=== PATIENT | female | born 1955 | race African-American/Black ===

== ENCOUNTER → 2017-04-22 | Outpatient (CLI) | payer MEDICARE, MEDICAID ==
[~2017-04-22] MED LIST: ALEN10TA3 PO; ALPR0.5T PO; ASPI-1160 PO; BUSP10TA3 PO; CALC-1232 PO; DEXA1TAB PO; DOCU-100 PO; HYDR-519 PO; MSCON15 PO; ONDA8TAB6 PO; OXYC20TA21 PO; PROC10TA PO
[2017-04-22 13:57] LABS: BASOPHILS % 0.7 % (0.0-2.0); EOSINOPHILS % 2.2 % (0.0-5.0); HEMATOCRIT. 39.7 % (36.0-48.0); HEMOGLOBIN. 13.2 g/dL (12.0-16.0); LYMPHOCYTES % 33.6 % (20.0-50.0); MEAN CORPUSCULAR HEMOGLOBIN 30.2 pg (28.0-32.0); MEAN CORPUSCULAR VOLUME 91.1 fL (81.0-99.0); MONOCYTES % 9.3 % (2.0-8.0); NEUTROPHILS % 54.2 % (40.0-76.0); RED BLOOD CELL COUNT 4.36 mill/uL (4.2-5.4); RED CELL DISTRIBUTION WIDTH 13.8 % (11.6-14.6)
[2017-04-22 13:58] LABS: CLARITY URINE CLEAR (CLEAR); COLOR URINE YELLOW (YELLOW); KETONES URINE TRACE (NEGATIVE); LEUKOCYTE ESTERASE URINE 1+ (NEGATIVE); NITRITE URINE NEGATIVE (NEGATIVE); OCCULT BLOOD URINE NEGATIVE (NEGATIVE); PROTEIN URINE NEGATIVE (NEGATIVE); SPECIFIC GRAVITY URINE 1.028 (1.005-1.030); UROBILINOGEN URINE 0.2 E.U./dL (0.2-1.0)
[2017-04-22 14:07] LABS: CARBON DIOXIDE 23 mEq/L (21-32); CHLORIDE 106 mEq/L (98-107)
== END | disposition home or self-care (01) ==
LOC: RAD 13:13
PROVIDERS: ATTEND Internal Medicine Pulmonary Disease
DX: I10 Essential (primary) hypertension (principal); N39.0 Urinary tract infection, site not specified; K58.1 Irritable bowel syndrome with constipation; R56.9 Unspecified convulsions
CPT/HCPCS: 36415; 80053; 81001; 85025; 87086

== ENCOUNTER 2018-06-05 11:54 | Emergency (ER) | payer MEDICARE, MEDICAID ==
[~2018-06-05] VITALS: Ht 160 cm; Wt 48.0 kg
[2018-06-05 11:57] VITALS: BP 154/92
== END 2018-06-05 18:06 | disposition home or self-care (01) ==
LOC: ER 11:54
DX: S52.591A Other fractures of lower end of right radius, initial encounter for closed fracture (principal); W01.0XXA Fall on same level from slipping, tripping and stumbling without subsequent striking against object, initial encounter; Y93.89 Activity, other specified; Y92.89 Other specified places as the place of occurrence of the external cause; Z88.6 Allergy status to analgesic agent; Z88.5 Allergy status to narcotic agent; Z88.0 Allergy status to penicillin; Z88.2 Allergy status to sulfonamides
CPT/HCPCS: 29125; 73080; 73110; 73130; 99284; A4565

== ENCOUNTER 2018-06-15 14:40 | Inpatient (IN) | payer MEDICARE, MEDICAID ==
[~2018-06-15] VITALS: Ht 165.1 cm; Wt 53.5 kg
[2018-06-15 15:00] VITALS: BP 99/66
[2018-06-15] MEDS ORDERED: CLONIDINE 0.1MG TABLET PO PRN (16:45)
[2018-06-15] MEDS ORDERED: POLYETHYLENE GLYCOL 3350 (17GM) 1 DOSE PACK PO PRN (16:45)
[2018-06-15] MEDS: DOCUSATE SODIUM 100MG CAPSULE PO SCH (17:00)
[2018-06-15] MEDS: HYDROMORPHONE HCL 4MG TABLET PO PRN ×2 (17:36→22:08)
[2018-06-15] MEDS ORDERED: LAMOTRIGINE 25MG TABLET PO SCH (18:00)
[2018-06-15] MEDS: CARISOPRODOL 350 MG TABLET PO PRN (18:52)
[2018-06-15 20:00] VITALS: BP 112/72
[2018-06-15] MEDS: AMLODIPINE 2.5MG TABLET PO SCH (21:00)
[2018-06-15] MEDS: LAMOTRIGINE 25MG TABLET PO SCH (21:27)
[2018-06-16] MEDS: HYDROMORPHONE HCL 4MG TABLET PO PRN ×4 (04:17→23:19)
[2018-06-16] MEDS: PANTOPRAZOLE 40MG DR TABLET PO SCH (06:38)
[2018-06-16 06:43] LABS: BASOPHILS % 0.8 % (0.0-2.0); EOSINOPHILS % 6.9 % (0.0-5.0); HEMATOCRIT. 34.3 % (36.0-48.0); HEMOGLOBIN. 11.6 g/dL (12.0-16.0); MEAN CORPUSCULAR HEMOGLOBIN 30.8 pg (28.0-32.0); MEAN CORPUSCULAR VOLUME 91.2 fL (81.0-99.0); MEAN PLATELET VOLUME 9.3 fl (7.4-10.4); MONOCYTES % 7.8 % (2.0-8.0); NEUTROPHILS % 60.5 % (40.0-76.0); PLATELET 214 x1000/uL (130-400); RED BLOOD CELL COUNT 3.76 mill/uL (4.2-5.4); RED CELL DISTRIBUTION WIDTH 15.5 % (11.6-14.6)
[2018-06-16 06:47] LABS: CHLORIDE 103 mEq/L (98-107)
[2018-06-16 08:00] VITALS: BP 109/70
[2018-06-16] MEDS: LAMOTRIGINE 25MG TABLET PO SCH ×2 (08:07→17:11)
[2018-06-16] MEDS: CARISOPRODOL 350 MG TABLET PO PRN ×2 (08:07→15:02)
[2018-06-16] MEDS: DOCUSATE SODIUM 100MG CAPSULE PO SCH ×2 (08:08→16:33)
[2018-06-16] MEDS: AMLODIPINE 2.5MG TABLET PO SCH ×2 (08:08→20:53)
[2018-06-16] MEDS: ENOXAPARIN 40MG/0.4ML SYR SUBCUT SCH (15:02)
[2018-06-16 20:00] VITALS: BP 99/56
[2018-06-17] VITALS: BP 118/68
[2018-06-17] MEDS: HYDROMORPHONE HCL 4MG TABLET PO PRN ×2 (05:17→13:41)
[2018-06-17] MEDS: PANTOPRAZOLE 40MG DR TABLET PO SCH (06:09)
[2018-06-17 08:00] VITALS: BP 114/61
[2018-06-17] MEDS: AMLODIPINE 2.5MG TABLET PO SCH ×2 (09:28→21:00)
[2018-06-17] MEDS: LAMOTRIGINE 25MG TABLET PO SCH ×2 (09:28→17:26)
[2018-06-17] MEDS: DOCUSATE SODIUM 100MG CAPSULE PO SCH ×2 (09:28→17:26)
[2018-06-17] MEDS: ENOXAPARIN 40MG/0.4ML SYR SUBCUT SCH (09:29)
[2018-06-17] MEDS: CARISOPRODOL 350 MG TABLET PO PRN ×2 (09:29→18:45)
[2018-06-17] MEDS: FAMOTIDINE 20MG TABLET PO SCH (17:26)
[2018-06-17 20:00] VITALS: BP 93/65
[2018-06-17 21:53] VITALS: BP 100/69
[2018-06-18] MEDS: HYDROMORPHONE HCL 4MG TABLET PO PRN ×2 (00:33→10:18)
[2018-06-18 01:18] LABS: CLARITY URINE CLEAR (CLEAR); COLOR URINE YELLOW (YELLOW); KETONES URINE NEGATIVE (NEGATIVE); LEUKOCYTE ESTERASE URINE NEGATIVE (NEGATIVE); NITRITE URINE NEGATIVE (NEGATIVE); OCCULT BLOOD URINE NEGATIVE (NEGATIVE); PH URINE 5.5 (4.5-8.0); PROTEIN URINE NEGATIVE (NEGATIVE); SPECIFIC GRAVITY URINE 1.029 (1.005-1.030)
[2018-06-18 08:00] VITALS: BP 114/67
[2018-06-18] MEDS: DOCUSATE SODIUM 100MG CAPSULE PO SCH ×2 (09:00→16:47)
[2018-06-18 09:37] LABS: BASOPHILS % 1.1 % (0.0-2.0); EOSINOPHILS % 5.1 % (0.0-5.0); HEMOGLOBIN. 12.5 g/dL (12.0-16.0); LYMPHOCYTES % 33.2 % (20.0-50.0); MEAN CORPUSCULAR HEMOGLOBIN 30.3 pg (28.0-32.0); MEAN CORPUSCULAR VOLUME 92.2 fL (81.0-99.0); MEAN PLATELET VOLUME 8.9 fl (7.4-10.4); MONOCYTES % 8.3 % (2.0-8.0); NEUTROPHILS % 52.3 % (40.0-76.0); PLATELET 237 x1000/uL (130-400); RED BLOOD CELL COUNT 4.12 mill/uL (4.2-5.4); RED CELL DISTRIBUTION WIDTH 15.2 % (11.6-14.6)
[2018-06-18] MEDS: ENOXAPARIN 40MG/0.4ML SYR SUBCUT SCH (10:14)
[2018-06-18] MEDS: LAMOTRIGINE 25MG TABLET PO SCH ×2 (10:18→16:46)
[2018-06-18] MEDS: FAMOTIDINE 20MG TABLET PO SCH ×2 (10:18→16:46)
[2018-06-18] MEDS: AMLODIPINE 2.5MG TABLET PO SCH ×2 (10:19→21:00)
[2018-06-18 10:25] LABS: CHLORIDE 104 mEq/L (98-107)
[2018-06-18 11:31] LABS: HDL CHOLESTEROL 55 mg/dL (40-59); LDL CHOLESTEROL 71 mg/dL (5-100); PHOSPHORUS 2.5 mg/dL (2.5-4.9); TOTAL IRON BINDING CAPACITY 352 ug/dL (250-450)
[2018-06-18] MEDS: HYDROCODONE/ACETAMINOPHEN 10/325MG TABLET PO PRN (13:15)
[2018-06-18] MEDS: PANTOPRAZOLE 40MG DR TABLET PO SCH (16:46)
[2018-06-18 22:00] VITALS: BP 103/62
[2018-06-19] VITALS: BP 100/64
[2018-06-19] MEDS: HYDROMORPHONE HCL 4MG TABLET PO PRN ×2 (01:29→20:18)
[2018-06-19] MEDS: PANTOPRAZOLE 40MG DR TABLET PO SCH (06:12)
[2018-06-19 07:45] LABS: BASOPHILS % 1.2 % (0.0-2.0); EOSINOPHILS % 4.2 % (0.0-5.0); HEMATOCRIT. 33.5 % (36.0-48.0); HEMOGLOBIN. 11.1 g/dL (12.0-16.0); LYMPHOCYTES % 32.3 % (20.0-50.0); MEAN CORPUSCULAR HEMOGLOBIN 30.4 pg (28.0-32.0); MEAN CORPUSCULAR VOLUME 91.7 fL (81.0-99.0); MEAN PLATELET VOLUME 9.3 fl (7.4-10.4); MONOCYTES % 8.8 % (2.0-8.0); NEUTROPHILS % 53.5 % (40.0-76.0); PLATELET 223 x1000/uL (130-400); RED BLOOD CELL COUNT 3.66 mill/uL (4.2-5.4)
[2018-06-19 07:48] LABS: PARTIAL THROMBOPLASTIN TIME 25.9 sec (23.4-31.0); PROTHROMBIN TIME 9.9 sec (9.1-11.1)
[2018-06-19 08:04] VITALS: BP 117/70
[2018-06-19 09:08] LABS: CHLORIDE 104 mEq/L (98-107)
[2018-06-19 09:13] LABS: AMYLASE 82 IU/L (25-115)
[2018-06-19] MEDS: LAMOTRIGINE 25MG TABLET PO SCH ×2 (09:30→17:00)
[2018-06-19] MEDS: AMLODIPINE 2.5MG TABLET PO SCH ×2 (09:30→20:16)
[2018-06-19] MEDS: DOCUSATE SODIUM 100MG CAPSULE PO SCH ×2 (09:30→17:00)
[2018-06-19] MEDS: FAMOTIDINE 20MG TABLET PO SCH (09:30)
[2018-06-19] MEDS: CYANOCOBALAMIN 1000MCG/ML VIAL IM SCH (09:39)
[2018-06-19] MEDS: HYDROCODONE/ACETAMINOPHEN 10/325MG TABLET PO PRN (09:40)
[2018-06-19] MEDS ORDERED: DEXT 5%/0.45% NACL 1000ML 1,000 ML IV SCH (10:30)
[2018-06-19] MEDS ORDERED: SIMETHICONE 40 MG/0.6 ML 30ML ONE ×3 (13:59→15:15)
[2018-06-19] MEDS ORDERED: MIDAZOLAM HCL 5 MG/5 ML VIAL ONE (13:59)
[2018-06-19] MEDS ORDERED: FENTANYL CITRATE/PF 50MCG/ML 2ML VIAL ONE (13:59)
[2018-06-19] MEDS ORDERED: MIDAZOLAM HCL 5 MG/5 ML VIAL IV PRN (14:11)
[2018-06-19] MEDS ORDERED: FENTANYL CITRATE/PF 50MCG/ML 2ML VIAL IV PRN (14:12)
[2018-06-19] MEDS ORDERED: BACTERIOSTATIC SODIUM CHLORIDE 0.9% 30ML VIAL IJ ONE ×2 (15:14→15:15)
[2018-06-19] MEDS: PANTOPRAZOLE SODIUM 40 MG/VIAL IV SCH (17:31)
[2018-06-19 20:00] VITALS: BP 95/68
[2018-06-20] MEDS: HYDROCODONE/ACETAMINOPHEN 10/325MG TABLET PO PRN (02:22)
[2018-06-20 08:19] VITALS: BP 114/62
[2018-06-20] MEDS: PANTOPRAZOLE SODIUM 40 MG/VIAL IV SCH ×2 (08:38→08:50)
[2018-06-20] MEDS: CYANOCOBALAMIN 1000MCG/ML VIAL IM SCH (08:39)
[2018-06-20] MEDS: AMLODIPINE 2.5MG TABLET PO SCH ×2 (08:39→21:00)
[2018-06-20] MEDS: DOCUSATE SODIUM 100MG CAPSULE PO SCH ×2 (08:39→16:13)
[2018-06-20] MEDS: LAMOTRIGINE 25MG TABLET PO SCH ×2 (08:40→16:13)
[2018-06-20] MEDS: CARISOPRODOL 350 MG TABLET PO PRN (08:44)
[2018-06-20] MEDS: HYDROMORPHONE HCL 4MG TABLET PO PRN ×2 (10:27→21:25)
[2018-06-20 12:09] LABS: AMYLASE 86 IU/L (25-115)
[2018-06-20] MEDS: PANTOPRAZOLE 40MG DR TABLET PO SCH (16:13)
[2018-06-20 20:00] VITALS: BP 99/63
[2018-06-21 08:00] VITALS: BP 113/70
[2018-06-21] MEDS: DOCUSATE SODIUM 100MG CAPSULE PO SCH ×2 (08:54→17:10)
[2018-06-21] MEDS: LAMOTRIGINE 25MG TABLET PO SCH ×2 (08:54→17:10)
[2018-06-21] MEDS: PANTOPRAZOLE 40MG DR TABLET PO SCH ×2 (08:55→17:10)
[2018-06-21] MEDS: AMLODIPINE 2.5MG TABLET PO SCH ×2 (08:57→21:00)
[2018-06-21] MEDS: ENOXAPARIN 40MG/0.4ML SYR SUBCUT SCH (08:57)
[2018-06-21] MEDS: HYDROMORPHONE HCL 4MG TABLET PO PRN ×2 (08:58→18:31)
[2018-06-21] MEDS: CYANOCOBALAMIN 1000MCG/ML VIAL IM SCH (08:58)
[2018-06-21 09:57] LABS: BASOPHILS % 1.2 % (0.0-2.0); EOSINOPHILS % 5.4 % (0.0-5.0); HEMATOCRIT. 34.5 % (36.0-48.0); HEMOGLOBIN. 11.9 g/dL (12.0-16.0); LYMPHOCYTES % 30.6 % (20.0-50.0); MEAN CORPUSCULAR HEMOGLOBIN 31.6 pg (28.0-32.0); MEAN CORPUSCULAR VOLUME 91.6 fL (81.0-99.0); MEAN PLATELET VOLUME 8.4 fl (7.4-10.4); MONOCYTES % 8.4 % (2.0-8.0); NEUTROPHILS % 54.4 % (40.0-76.0); PLATELET 281 x1000/uL (130-400); RED BLOOD CELL COUNT 3.76 mill/uL (4.2-5.4); RED CELL DISTRIBUTION WIDTH 15.3 % (11.6-14.6)
[2018-06-21 10:34] LABS: CHLORIDE 103 mEq/L (98-107)
[2018-06-21 20:00] VITALS: BP 94/60
[2018-06-21] MEDS: CARISOPRODOL 350 MG TABLET PO PRN (21:49)
[2018-06-22 08:00] VITALS: BP 119/79
[2018-06-22] MEDS: PANTOPRAZOLE 40MG DR TABLET PO SCH ×2 (08:10→17:00)
[2018-06-22] MEDS: ENOXAPARIN 40MG/0.4ML SYR SUBCUT SCH (08:10)
[2018-06-22] MEDS: AMLODIPINE 2.5MG TABLET PO SCH ×2 (08:10→21:00)
[2018-06-22] MEDS: CYANOCOBALAMIN 1000MCG/ML VIAL IM SCH (08:10)
[2018-06-22] MEDS: LAMOTRIGINE 25MG TABLET PO SCH ×2 (08:10→17:00)
[2018-06-22] MEDS: HYDROMORPHONE HCL 4MG TABLET PO PRN ×2 (08:35→17:07)
[2018-06-22] MEDS: DOCUSATE SODIUM 100MG CAPSULE PO SCH ×2 (08:36→17:00)
[2018-06-22] MEDS ORDERED: HYDROCODONE/ACETAMINOPHEN 5/325MG TABLET PO PRN (11:30)
[2018-06-22 20:00] VITALS: BP 128/77
[2018-06-23] MEDS: HYDROMORPHONE HCL 4MG TABLET PO PRN ×3 (01:15→22:23)
[2018-06-23 08:00] VITALS: BP 126/76
[2018-06-23] MEDS: CARISOPRODOL 350 MG TABLET PO PRN (08:50)
[2018-06-23] MEDS: LAMOTRIGINE 25MG TABLET PO SCH ×2 (08:50→17:32)
[2018-06-23] MEDS: DOCUSATE SODIUM 100MG CAPSULE PO SCH ×3 (08:50→17:00)
[2018-06-23] MEDS: PANTOPRAZOLE 40MG DR TABLET PO SCH ×2 (08:51→17:32)
[2018-06-23] MEDS: AMLODIPINE 2.5MG TABLET PO SCH ×2 (08:51→21:00)
[2018-06-23] MEDS: ENOXAPARIN 40MG/0.4ML SYR SUBCUT SCH (08:52)
[2018-06-23] MEDS: CYANOCOBALAMIN 1000MCG/ML VIAL IM SCH (08:52)
[2018-06-23 15:10] LABS: 25-HYDROXY VITAMIN D3 8.7 ng/mL (.)
[2018-06-23 20:00] VITALS: BP 116/69
[2018-06-24 08:00] VITALS: BP 108/66
[2018-06-24] MEDS: DOCUSATE SODIUM 100MG CAPSULE PO SCH ×2 (09:00→16:19)
[2018-06-24] MEDS: PANTOPRAZOLE 40MG DR TABLET PO SCH ×2 (10:11→16:44)
[2018-06-24] MEDS: AMLODIPINE 2.5MG TABLET PO SCH ×2 (10:11→21:00)
[2018-06-24] MEDS: LAMOTRIGINE 25MG TABLET PO SCH ×2 (10:11→16:44)
[2018-06-24] MEDS: ENOXAPARIN 40MG/0.4ML SYR SUBCUT SCH (10:12)
[2018-06-24] MEDS: HYDROMORPHONE HCL 4MG TABLET PO PRN ×2 (10:31→16:45)
[2018-06-24] MEDS: CYANOCOBALAMIN 1000MCG/ML VIAL IM SCH (10:33)
[2018-06-24] MEDS ORDERED: SIMETHICONE 80MG TABLET CHEW PO PRN (13:00)
[2018-06-24 20:00] VITALS: BP 112/68
[2018-06-25 08:22] VITALS: BP 117/62
[2018-06-25] MEDS: DOCUSATE SODIUM 100MG CAPSULE PO SCH ×2 (09:00→17:00)
[2018-06-25] MEDS: PANTOPRAZOLE 40MG DR TABLET PO SCH ×2 (10:16→17:27)
[2018-06-25] MEDS: LAMOTRIGINE 25MG TABLET PO SCH ×2 (10:16→17:27)
[2018-06-25] MEDS: AMLODIPINE 2.5MG TABLET PO SCH ×2 (10:19→21:00)
[2018-06-25] MEDS: HYDROMORPHONE HCL 4MG TABLET PO PRN ×2 (10:19→23:48)
[2018-06-25] MEDS: ENOXAPARIN 40MG/0.4ML SYR SUBCUT SCH (10:20)
[2018-06-25] MEDS: CYANOCOBALAMIN 1000MCG/ML VIAL IM SCH (11:13)
[2018-06-25] MEDS ORDERED: CYANOCOBALAMIN 1000MCG/ML VIAL IM NR (11:15)
[2018-06-25 20:00] VITALS: BP 102/61
[2018-06-26 08:12] VITALS: BP 105/64
[2018-06-26] MEDS: LAMOTRIGINE 25MG TABLET PO SCH ×2 (08:37→17:15)
[2018-06-26] MEDS: PANTOPRAZOLE 40MG DR TABLET PO SCH ×2 (08:37→17:15)
[2018-06-26] MEDS: DOCUSATE SODIUM 100MG CAPSULE PO SCH ×2 (08:37→17:15)
[2018-06-26] MEDS: ENOXAPARIN 40MG/0.4ML SYR SUBCUT SCH (08:37)
[2018-06-26] MEDS: AMLODIPINE 2.5MG TABLET PO SCH ×2 (09:00→21:00)
[2018-06-26] MEDS: HYDROMORPHONE HCL 4MG TABLET PO PRN ×2 (10:42→21:20)
[2018-06-26 20:00] VITALS: BP 103/63
[2018-06-27 08:00] VITALS: BP 93/69
[2018-06-27] MEDS: ENOXAPARIN 40MG/0.4ML SYR SUBCUT SCH (08:34)
[2018-06-27] MEDS: PANTOPRAZOLE 40MG DR TABLET PO SCH ×2 (08:34→16:33)
[2018-06-27] MEDS: AMLODIPINE 2.5MG TABLET PO SCH ×2 (08:34→21:00)
[2018-06-27] MEDS: LAMOTRIGINE 25MG TABLET PO SCH ×2 (08:34→16:33)
[2018-06-27] MEDS: DOCUSATE SODIUM 100MG CAPSULE PO SCH ×2 (08:35→16:42)
[2018-06-27] MEDS: HYDROMORPHONE HCL 4MG TABLET PO PRN (12:03)
[2018-06-27 20:00] VITALS: BP 92/63
[2018-06-28 08:00] VITALS: BP 109/69
[2018-06-28] MEDS: DOCUSATE SODIUM 100MG CAPSULE PO SCH (08:03)
[2018-06-28] MEDS: LAMOTRIGINE 25MG TABLET PO SCH (08:04)
[2018-06-28] MEDS: HYDROMORPHONE HCL 4MG TABLET PO PRN (08:05)
[2018-06-28] MEDS: PANTOPRAZOLE 40MG DR TABLET PO SCH (08:05)
[2018-06-28] MEDS: AMLODIPINE 2.5MG TABLET PO SCH (08:06)
[2018-06-28] MEDS: ENOXAPARIN 40MG/0.4ML SYR SUBCUT SCH (08:06)
[2018-06-28 08:12] VITALS: BP 109/69
[2018-06-28 11:16] VITALS: BP 109/69
[2018-07-02] MEDS ORDERED: CYANOCOBALAMIN 1000MCG/ML VIAL IM SCH (09:00)
== END 2018-06-28 16:00 | disposition home health service (06) | DRG 563 ==
PROVIDERS: ADMIT Physical Medicine & Rehabilitation Spinal Cord Injury Medicine; ATTEND Internal Medicine Pulmonary Disease
PROC: 0DJ08ZZ Inspection of Upper Intestinal Tract, Via Natural or Artificial Opening Endoscopic (ICD-10-PCS; principal; 2018-06-19 15:00)
DX: S52.501A Unspecified fracture of the lower end of right radius, initial encounter for closed fracture (principal); G81.14 Spastic hemiplegia affecting left nondominant side; F11.20 Opioid dependence, uncomplicated; K86.1 Other chronic pancreatitis; W01.0XXA Fall on same level from slipping, tripping and stumbling without subsequent striking against object, initial encounter; G40.909 Epilepsy, unspecified, not intractable, without status epilepticus; G93.89 Other specified disorders of brain; I10 Essential (primary) hypertension; H53.462 Homonymous bilateral field defects, left side; H54.7 Unspecified visual loss; J98.4 Other disorders of lung; M81.0 Age-related osteoporosis without current pathological fracture; Z96.651 Presence of right artificial knee joint; K80.70 Calculus of gallbladder and bile duct without cholecystitis without obstruction; R53.81 Other malaise; D64.9 Anemia, unspecified; K21.9 Gastro-esophageal reflux disease without esophagitis; G89.29 Other chronic pain; F32.9 Major depressive disorder, single episode, unspecified; K59.00 Constipation, unspecified; K76.89 Other specified diseases of liver; Z96.642 Presence of left artificial hip joint; F17.210 Nicotine dependence, cigarettes, uncomplicated; Y93.89 Activity, other specified; Y92.89 Other specified places as the place of occurrence of the external cause; Y99.8 Other external cause status; Z85.3 Personal history of malignant neoplasm of breast; Z88.0 Allergy status to penicillin; Z90.11 Acquired absence of right breast and nipple; Z82.49 Family history of ischemic heart disease and other diseases of the circulatory system; Z88.2 Allergy status to sulfonamides; Z88.6 Allergy status to analgesic agent; Z88.8 Allergy status to other drugs, medicaments and biological substances
CPT/HCPCS: 36415; 74176; 76700; 80048; 80053; 80061; 80076; 81003; 82150; 82270; 82306; 82607; 82728; 82746; 83036; 83540; 83550; 83690; 83735; 84100; 84134; 84443; 84630; 85025; 85610; 85730; 86677; 87086; 92523; 93970; 97110; 97112; 97116; 97162; 97167; 97530; 97535; A6261; C1893; C9113; G0515; J1650; J2250; J3010; J3420; J3490

== ENCOUNTER 2018-10-17 08:21 | Inpatient (IN) | payer MEDICARE, MEDICAID ==
[~2018-10-17] VITALS: Ht 165.1 cm; Wt 50.8 kg
[2018-10-17] MEDS ORDERED: SODIUM CHLORIDE 0.9% 1,000 ML IV ONE (08:36)
[2018-10-17] MEDS ORDERED: FENTANYL CITRATE/PF 50MCG/ML 2ML VIAL IV ONE ×2 (08:45→11:45)
[2018-10-17 11:40] LABS: *AMPHETAMINES SCREEN URINE NEGATIVE (NEGATIVE); *BARBITURATES SCREEN URINE NEGATIVE (NEGATIVE); *BENZODIAZEPINES SCREEN URINE NEGATIVE (NEGATIVE); *COCAINE SCREEN URINE NEGATIVE (NEGATIVE); METHADONE URINE SCREEN NEGATIVE (NEGATIVE); OPIATES URINE SCREEN PRESUMTIVE POSITIVE (NEGATIVE); PHENCYCLIDINE URINE SCREEN NEGATIVE (NEGATIVE)
[2018-10-17 11:41] LABS: CANNABINOID URINE SCREEN NEGATIVE (NEGATIVE)
[2018-10-17 12:00] VITALS: BP 165/90
[2018-10-17 12:17] LABS: HEMATOCRIT. 35.4 % (36.0-48.0); HEMOGLOBIN. 11.5 g/dL (12.0-16.0); MEAN CORPUSCULAR HEMOGLOBIN 26.7 pg (28.0-32.0); MEAN CORPUSCULAR VOLUME 82.2 fL (81.0-99.0); MEAN PLATELET VOLUME 8.8 fl (7.4-10.4); PLATELET 249 x1000/uL (130-400)
[2018-10-17 12:24] LABS: CHLORIDE 110 mEq/L (98-107)
[2018-10-17 12:27] LABS: INR 1.1; PARTIAL THROMBOPLASTIN TIME 30.3 sec (23.4-31.0); PROTHROMBIN TIME 11.4 sec (9.1-11.1)
[2018-10-17 12:28] LABS: ETHANOL BLOOD < 10 mg/dL
[2018-10-17] MEDS: HYDROMORPHONE HCL 2MG TABLET PO PRN ×2 (14:34→21:27)
[2018-10-17 15:25] LABS: PLATELET ESTIMATE NORMAL
[2018-10-17 16:00] VITALS: BP 173/93
[2018-10-17 16:25] VITALS: BP 165/90
[2018-10-17] MEDS ORDERED: HYDR4TAB4 MT (18:36)
[2018-10-17] MEDS ORDERED: ALPR1TAB2 MT (18:36)
[2018-10-17] MEDS ORDERED: ALEN70TA3 MT (18:36)
[2018-10-17] MEDS ORDERED: AMLO2.5T45 MT (18:36)
[2018-10-17] MEDS ORDERED: MY80 MT (18:36)
[2018-10-17] MEDS ORDERED: ASPI-1158 MT (18:36)
[2018-10-17] MEDS ORDERED: S350 MT (18:36)
[2018-10-17] MEDS ORDERED: DOCU-138 MT (18:36)
[2018-10-17] MEDS ORDERED: POLY17PO3 MT (18:36)
[2018-10-17] MEDS ORDERED: CHOL100053 PO (18:36)
[2018-10-17] MEDS ORDERED: PROT40 MT (18:36)
[2018-10-17] MEDS ORDERED: BIMA2.5D4 EACHEYE (18:36)
[2018-10-17] MEDS ORDERED: DEXL60CA3 MT (18:36)
[2018-10-17] MEDS ORDERED: CARISOPRODOL 350 MG TABLET PO PRN (19:15)
[2018-10-17] MEDS ORDERED: ALPRAZOLAM 0.5 MG TABLET PO PRN (19:54)
[2018-10-17 20:00] VITALS: BP 148/89
[2018-10-17] MEDS ORDERED: POLYETHYLENE GLYCOL 3350 (17GM) 1 DOSE PACK PO PRN (20:00)
[2018-10-17] MEDS ORDERED: HYDROMORPHONE HCL 4MG TABLET PO PRN (20:00)
[2018-10-17] MEDS: DOCUSATE SODIUM 100MG CAPSULE PO SCH (21:25)
[2018-10-17] MEDS: AMLODIPINE 2.5MG TABLET PO SCH (21:25)
[2018-10-18] VITALS: BP 150/84
[2018-10-18] MEDS: LATANOPROST 0.005% OPHTH DROPS 2.5ML EACHEYE SCH ×2 (00:08→20:26)
[2018-10-18] MEDS: SIMETHICONE 80MG TABLET CHEW PO PRN ×3 (00:21→20:23)
[2018-10-18] MEDS ORDERED: ACETAMINOPHEN 325MG TABLET PO PRN (01:30)
[2018-10-18] MEDS: HYDROMORPHONE HCL/PF 2MG/ML CPJ IV PRN ×5 (01:40→20:26)
[2018-10-18 04:00] VITALS: BP 129/77
[2018-10-18] MEDS: PANTOPRAZOLE 40MG DR TABLET PO SCH (06:54)
[2018-10-18 08:00] VITALS: BP 92/68
[2018-10-18] MEDS: AMLODIPINE 2.5MG TABLET PO SCH ×2 (09:00→20:24)
[2018-10-18] MEDS: DOCUSATE SODIUM 100MG CAPSULE PO SCH ×2 (09:38→17:00)
[2018-10-18] MEDS: ASPIRIN 81MG EC TABLET PO SCH (09:39)
[2018-10-18] MEDS ORDERED: CARISOPRODOL 350 MG TABLET PO PRN (10:30)
[2018-10-18] MEDS: ONDANSETRON HCL 4MG/2ML INJ IV PRN ×2 (10:50→15:33)
[2018-10-18 12:00] VITALS: BP 111/70
[2018-10-18] MEDS ORDERED: METOCLOPRAMIDE HCL 10MG TABLET PO PRN (19:45)
[2018-10-18 20:00] VITALS: BP 118/80
[2018-10-19] VITALS: BP 105/83
[2018-10-19] MEDS: HYDROMORPHONE HCL/PF 2MG/ML CPJ IV PRN (00:59)
[2018-10-19] MEDS: DEXT 5%/0.45% NACL KCL 20MEQ/L 1,000 ML IV SCH ×2 (01:39→09:53)
[2018-10-19 04:00] VITALS: BP 121/80
[2018-10-19] MEDS: SIMETHICONE 80MG TABLET CHEW PO PRN ×3 (06:29→15:14)
[2018-10-19] MEDS: HYDROMORPHONE HCL 2MG TABLET PO PRN ×4 (06:29→20:34)
[2018-10-19] MEDS: PANTOPRAZOLE 40MG DR TABLET PO SCH (06:29)
[2018-10-19 06:54] LABS: BASOPHILS % 0.7 % (0.0-2.0); EOSINOPHILS % 2.8 % (0.0-5.0); HEMOGLOBIN. 10.7 g/dL (12.0-16.0); LYMPHOCYTES % 13.9 % (20.0-50.0); MEAN CORPUSCULAR HEMOGLOBIN 26.4 pg (28.0-32.0); MEAN CORPUSCULAR VOLUME 81.2 fL (81.0-99.0); MEAN PLATELET VOLUME 7.8 fl (7.4-10.4); MONOCYTES % 10.2 % (2.0-8.0); NEUTROPHILS % 72.4 % (40.0-76.0); PLATELET 209 x1000/uL (130-400); RED BLOOD CELL COUNT 4.07 mill/uL (4.2-5.4); RED CELL DISTRIBUTION WIDTH 17.8 % (11.6-14.6)
[2018-10-19 07:01] LABS: CHLORIDE 106 mEq/L (98-107)
[2018-10-19 08:00] VITALS: BP 113/78
[2018-10-19] MEDS: CALCITONIN,SALMON, 3.7 ML NASAL SPRAY ONENSTRL SCH (09:00)
[2018-10-19] MEDS: DOCUSATE SODIUM 100MG CAPSULE PO SCH ×2 (09:32→17:37)
[2018-10-19] MEDS: AMLODIPINE 2.5MG TABLET PO SCH ×2 (09:33→20:33)
[2018-10-19] MEDS: ENOXAPARIN 40MG/0.4ML SYR SUBCUT SCH (09:33)
[2018-10-19] MEDS: ASPIRIN 81MG EC TABLET PO SCH (09:33)
[2018-10-19 12:00] VITALS: BP 133/97
[2018-10-19 16:00] VITALS: BP 132/82
[2018-10-19 17:06] LABS: CLARITY URINE CLOUDY (CLEAR); COLOR URINE DARK YELLOW (YELLOW); KETONES URINE TRACE (NEGATIVE); LEUKOCYTE ESTERASE URINE 1+ (NEGATIVE); NITRITE URINE POSITIVE (NEGATIVE); OCCULT BLOOD URINE 2+ (NEGATIVE); PROTEIN URINE 2+ (NEGATIVE); SPECIFIC GRAVITY URINE 1.023 (1.005-1.030); UROBILINOGEN URINE 0.2 E.U./dL (0.2-1.0)
[2018-10-19] MEDS: CALCIUM CARBONATE/VITAMIN D3 500MG TABLET PO SCH (17:37)
[2018-10-19] MEDS: LATANOPROST 0.005% OPHTH DROPS 2.5ML EACHEYE SCH (20:36)
[2018-10-20] VITALS: BP 138/88
[2018-10-20] MEDS: SIMETHICONE 80MG TABLET CHEW PO PRN ×2 (02:22→15:48)
[2018-10-20] MEDS: HYDROMORPHONE HCL 2MG TABLET PO PRN ×5 (02:23→21:22)
[2018-10-20 04:00] VITALS: BP 121/88
[2018-10-20 08:00] VITALS: BP 168/60
[2018-10-20] MEDS: AMLODIPINE 2.5MG TABLET PO SCH ×2 (09:03→21:30)
[2018-10-20] MEDS: ASPIRIN 81MG EC TABLET PO SCH (09:03)
[2018-10-20] MEDS: DOCUSATE SODIUM 100MG CAPSULE PO SCH ×2 (09:03→17:00)
[2018-10-20] MEDS: FAMOTIDINE 20MG TABLET PO SCH (09:03)
[2018-10-20] MEDS: ENOXAPARIN 40MG/0.4ML SYR SUBCUT SCH (09:04)
[2018-10-20] MEDS: CALCITONIN,SALMON, 3.7 ML NASAL SPRAY ONENSTRL SCH (09:08)
[2018-10-20 12:00] VITALS: BP 123/66
[2018-10-20 16:00] VITALS: BP 127/61
[2018-10-20] MEDS: CALCIUM CARBONATE/VITAMIN D3 500MG TABLET PO SCH (17:52)
[2018-10-20 20:00] VITALS: BP 137/83
[2018-10-20] MEDS: LATANOPROST 0.005% OPHTH DROPS 2.5ML EACHEYE SCH (21:31)
[2018-10-21] VITALS: BP 137/81
[2018-10-21] MEDS: HYDROMORPHONE HCL 2MG TABLET PO PRN ×4 (03:08→17:57)
[2018-10-21 04:00] VITALS: BP 120/72
[2018-10-21 08:00] VITALS: BP 145/76
[2018-10-21] MEDS ORDERED: LAMC5 MT (08:11)
[2018-10-21] MEDS: FAMOTIDINE 20MG TABLET PO SCH (08:44)
[2018-10-21] MEDS: AMLODIPINE 2.5MG TABLET PO SCH (08:44)
[2018-10-21] MEDS: ASPIRIN 81MG EC TABLET PO SCH (08:44)
[2018-10-21] MEDS: DOCUSATE SODIUM 100MG CAPSULE PO SCH ×2 (08:44→17:56)
[2018-10-21] MEDS: ENOXAPARIN 40MG/0.4ML SYR SUBCUT SCH (08:45)
[2018-10-21] MEDS: CALCITONIN,SALMON, 3.7 ML NASAL SPRAY ONENSTRL SCH (08:45)
[2018-10-21] MEDS: SIMETHICONE 80MG TABLET CHEW PO PRN (08:52)
[2018-10-21 12:00] VITALS: BP 132/67
[2018-10-21 16:00] VITALS: BP 112/72
[2018-10-21] MEDS: CALCIUM CARBONATE/VITAMIN D3 500MG TABLET PO SCH (17:56)
[2018-10-21] MEDS ORDERED: LAMOTRIGINE 25MG TABLET PO SCH (18:00)
[2018-10-21 18:18] VITALS: BP 128/87
[2018-10-22] MEDS ORDERED: ERGOCALCIFEROL 50000UNITS CAPSULE PO SCH (09:00)
== END 2018-10-21 19:20 | DRG 552 ==
LOC: ER 08:38 → 6EST 11:04 → EDBEDREQ 11:10 → ENRESERV 11:12
PROVIDERS: ADMIT Internal Medicine Pulmonary Disease; ATTEND Internal Medicine Pulmonary Disease
DX: S32.048A Other fracture of fourth lumbar vertebra, initial encounter for closed fracture (principal); G81.94 Hemiplegia, unspecified affecting left nondominant side; M81.0 Age-related osteoporosis without current pathological fracture; M47.816 Spondylosis without myelopathy or radiculopathy, lumbar region; Z85.3 Personal history of malignant neoplasm of breast; K58.9 Irritable bowel syndrome, unspecified; K21.9 Gastro-esophageal reflux disease without esophagitis; J98.4 Other disorders of lung; I10 Essential (primary) hypertension; G40.909 Epilepsy, unspecified, not intractable, without status epilepticus; F17.210 Nicotine dependence, cigarettes, uncomplicated; M48.061 Spinal stenosis, lumbar region without neurogenic claudication; D64.9 Anemia, unspecified; J44.9 Chronic obstructive pulmonary disease, unspecified; H53.462 Homonymous bilateral field defects, left side; M62.838 Other muscle spasm; K59.00 Constipation, unspecified; G89.4 Chronic pain syndrome; G83.9 Paralytic syndrome, unspecified; Z96.651 Presence of right artificial knee joint; M19.90 Unspecified osteoarthritis, unspecified site; Z96.642 Presence of left artificial hip joint; W01.0XXA Fall on same level from slipping, tripping and stumbling without subsequent striking against object, initial encounter; Y93.89 Activity, other specified; Y92.098 Other place in other non-institutional residence as the place of occurrence of the external cause; Y99.8 Other external cause status; Z86.73 Personal history of transient ischemic attack (TIA), and cerebral infarction without residual deficits; Z87.892 Personal history of anaphylaxis; Z82.49 Family history of ischemic heart disease and other diseases of the circulatory system; Z83.3 Family history of diabetes mellitus; Z82.0 Family history of epilepsy and other diseases of the nervous system; Z88.6 Allergy status to analgesic agent; Z88.0 Allergy status to penicillin; Z88.2 Allergy status to sulfonamides; Z90.11 Acquired absence of right breast and nipple; Z91.012 Allergy to eggs; Z91.013 Allergy to seafood; Z91.018 Allergy to other foods
CPT/HCPCS: 36415; 71045; 72128; 72131; 73502; 80048; 80305; 87077; 87186; 93005; 96361; 96374; 96375; 96376; 97116; 97162; 97166; 97530; 99285; C1893; G0482; J1170; J1650; J2405; J3010; J7030; A4315

== ENCOUNTER 2018-11-26 10:36 | Emergency (ER) | payer MEDICARE, MEDICAID ==
[~2018-11-26] VITALS: Ht 162.6 cm; Wt 66.0 kg
[~2018-11-26 10:36] MED LIST changes: -ALEN10TA3 PO; +ALEN70TA3 MT; -ALPR0.5T PO; +ALPR1TAB2 MT; +AMLO2.5T45 MT; +ASPI-1158 MT; -ASPI-1160 PO; +BIMA2.5D4 EACHEYE; -BUSP10TA3 PO; -CALC-1232 PO; +CHOL100053 PO; -DEXA1TAB PO; +DEXL60CA3 MT; -DOCU-100 PO; +DOCU-138 MT; -HYDR-519 PO; +HYDR4TAB4 MT; +LAMC5 MT; -MSCON15 PO; +MY80 MT; -ONDA8TAB6 PO; -OXYC20TA21 PO; +POLY17PO3 MT; -PROC10TA PO; +PROT40 MT; +S350 MT
[2018-11-26] MEDS ORDERED: HYDROCODONE/ACETAMINOPHEN 5/325MG TABLET PO ONE (12:45)
[2018-11-26 13:24] VITALS: BP 169/87
== END 2018-11-26 18:17 | disposition home or self-care (01) ==
LOC: ER 10:56
DX: M25.552 Pain in left hip (principal); M25.512 Pain in left shoulder; G89.29 Other chronic pain; M54.9 Dorsalgia, unspecified; W01.0XXA Fall on same level from slipping, tripping and stumbling without subsequent striking against object, initial encounter; Y93.E8 Activity, other personal hygiene; Y92.89 Other specified places as the place of occurrence of the external cause; I10 Essential (primary) hypertension; R56.9 Unspecified convulsions; Z88.0 Allergy status to penicillin; Z88.6 Allergy status to analgesic agent; Z88.8 Allergy status to other drugs, medicaments and biological substances; Z86.73 Personal history of transient ischemic attack (TIA), and cerebral infarction without residual deficits; Z79.82 Long term (current) use of aspirin; Z91.012 Allergy to eggs; Z91.018 Allergy to other foods; Z96.649 Presence of unspecified artificial hip joint; Z96.659 Presence of unspecified artificial knee joint
CPT/HCPCS: 71045; 73502; 99283

== ENCOUNTER → 2019-02-12 | Outpatient (CLI) | payer MEDICARE, MEDICAID | END | disposition home or self-care (01) | LOC: CT 08:30 | PROVIDERS: ATTEND Neurological Surgery | DX: S32.019D Unspecified fracture of first lumbar vertebra, subsequent encounter for fracture with routine healing (principal); M48.02 Spinal stenosis, cervical region; X58.XXXD Exposure to other specified factors, subsequent encounter | CPT/HCPCS: 72131 ==

== ENCOUNTER 2019-08-26 15:07 | Emergency (ER) | payer MEDICARE, MEDICAID ==
[~2019-08-26] VITALS: Ht 165.1 cm; Wt 45.0 kg
[~2019-08-26 15:07] MED LIST changes: +CARI-166 MT; -S350 MT
[2019-08-26] MEDS ORDERED: ONDANSETRON HCL 4MG/2ML INJ IV STA (15:55)
[2019-08-26] MEDS ORDERED: MORPHINE SULFATE 4 MG/ML CPJ (NOT FOR IM USE) IV STA (15:55)
[2019-08-26 16:56] LABS: BASOPHILS % 0.4 % (0.0-2.0); EOSINOPHILS % 0.4 % (0.0-5.0); HEMATOCRIT. 33.2 % (36.0-48.0); HEMOGLOBIN. 10.6 g/dL (12.0-16.0); LYMPHOCYTES % 7.8 % (20.0-50.0); MEAN CORPUSCULAR HEMOGLOBIN 24.5 pg (28.0-32.0); MEAN CORPUSCULAR VOLUME 77.1 fL (81.0-99.0); MEAN PLATELET VOLUME 8.8 fl (7.4-10.4); MONOCYTES % 7.3 % (2.0-8.0); NEUTROPHILS % 84.1 % (40.0-76.0); PLATELET 321 x1000/uL (130-400); RED BLOOD CELL COUNT 4.31 mill/uL (4.2-5.4); RED CELL DISTRIBUTION WIDTH 19.1 % (11.6-14.6)
[2019-08-26 17:01] LABS: PROTHROMBIN TIME 10.6 sec (9.6-11.0)
[2019-08-26] MEDS ORDERED: MORPHINE SULFATE 4 MG/ML CPJ (NOT FOR IM USE) IV ONE (19:00)
[2019-08-26] MEDS ORDERED: ONDANSETRON HCL 4MG/2ML INJ IV ONE (19:30)
[2019-08-26 20:49] VITALS: BP 146/76
[2019-08-26 21:25] LABS: CHLORIDE 112 mEq/L (98-107)
[2019-08-26] MEDS ORDERED: IOHEXOL-350 100 ML BOTTLE ONE (22:47)
== END 2019-08-26 22:32 | disposition short-term general hospital (02) ==
LOC: ER 15:07
DX: R53.1 Weakness (principal); S22.32XA Fracture of one rib, left side, initial encounter for closed fracture; S42.002A Fracture of unspecified part of left clavicle, initial encounter for closed fracture; I10 Essential (primary) hypertension; W01.0XXA Fall on same level from slipping, tripping and stumbling without subsequent striking against object, initial encounter; Y93.9 Activity, unspecified; Y92.9 Unspecified place or not applicable; Z88.0 Allergy status to penicillin; Z88.2 Allergy status to sulfonamides; Z88.6 Allergy status to analgesic agent; Z91.012 Allergy to eggs; Z91.013 Allergy to seafood; Z91.018 Allergy to other foods; Z96.649 Presence of unspecified artificial hip joint
CPT/HCPCS: 36415; 71101; 71275; 73030; 73060; 80053; 85025; 85610; 93005; 96374; 96375; 96376; 99285; J2270; J2405; Q9967

== ENCOUNTER → 2022-11-02 | Outpatient (CLI) | payer MEDICARE, MEDICAID ==
[~2022-11-02] MED LIST changes: -ALEN70TA3 MT; +ALEN70TA84 MT; -ASPI-1158 MT; +ASPI-1406 MT; -CARI-166 MT; +CARI350T28 MT; -MY80 MT; +SIME80TA16 MT
== END | disposition home or self-care (01) ==
LOC: PF 09:17
PROVIDERS: ATTEND Internal Medicine
DX: Z01.812 Encounter for preprocedural laboratory examination (principal); S42.002A Fracture of unspecified part of left clavicle, initial encounter for closed fracture; J44.9 Chronic obstructive pulmonary disease, unspecified; X58.XXXA Exposure to other specified factors, initial encounter; Y93.89 Activity, other specified; Y92.89 Other specified places as the place of occurrence of the external cause; Y99.8 Other external cause status
CPT/HCPCS: 73000; 87426; 94060; 94727; 94729; C9803

== ENCOUNTER → 2023-03-12 | Outpatient (CLI) | payer MEDICARE, MEDICAID | END | disposition home or self-care (01) | LOC: LAB 12:49 | PROVIDERS: ATTEND Internal Medicine | DX: Z01.818 Encounter for other preprocedural examination (principal); S42.002A Fracture of unspecified part of left clavicle, initial encounter for closed fracture; X58.XXXA Exposure to other specified factors, initial encounter; Y93.89 Activity, other specified; Y92.89 Other specified places as the place of occurrence of the external cause; Y99.8 Other external cause status | CPT/HCPCS: 71045; 93005 ==

== ENCOUNTER → 2023-03-13 | Outpatient (CLI) | payer MEDICARE, MEDICAID ==
[2023-03-13 12:34] LABS: BASOPHILS % 0.5 % (0.0-2.0); EOSINOPHILS % 0.8 % (0.0-5.0); HEMATOCRIT. 39.6 % (36.0-48.0); HEMOGLOBIN. 12.6 g/dL (12.0-16.0); LYMPHOCYTES % 20.8 % (20.0-50.0); MEAN CORPUSCULAR VOLUME 94.3 fL (81.0-99.0); MEAN PLATELET VOLUME 7.8 fl (7.4-10.4); MONOCYTES % 7.6 % (2.0-8.0); NEUTROPHILS % 70.3 % (40.0-76.0); PLATELET 365 x1000/uL (130-400); RED CELL DISTRIBUTION WIDTH 18.1 % (11.6-14.6)
[2023-03-13 14:29] LABS: CHLORIDE 114 mEq/L (98-107)
[2023-03-13 15:02] LABS: HDL CHOLESTEROL 51 mg/dL (40-59); LDL CHOLESTEROL 80 mg/dL (5-100)
== END | disposition home or self-care (01) ==
LOC: LAB 11:36
PROVIDERS: ATTEND Dermatology
DX: L40.0 Psoriasis vulgaris (principal)
CPT/HCPCS: 36415; 80053; 80061; 85025

== ENCOUNTER 2023-07-31 09:44 | Emergency (ER) | payer MEDICARE, MEDICAID ==
[~2023-07-31] VITALS: Ht 160 cm; Wt 66.0 kg
[2023-07-31 09:47] VITALS: O2SAT 98
[2023-07-31 11:05] LABS: BASOPHILS % 0.7 % (0.0-2.0); EOSINOPHILS % 2.5 % (0.0-5.0); HEMATOCRIT. 36.8 % (36.0-48.0); HEMOGLOBIN. 11.6 g/dL (12.0-16.0); LYMPHOCYTES % 16.5 % (20.0-50.0); MEAN CORPUSCULAR HEMOGLOBIN 28.6 pg (28.0-32.0); MEAN CORPUSCULAR HGB CONC 31.7 g/dL (31.0-37.0); MEAN CORPUSCULAR VOLUME 90.2 fL (81.0-99.0); MEAN PLATELET VOLUME 8.4 fl (7.4-10.4); MONOCYTES % 9.4 % (2.0-8.0); NEUTROPHILS % 70.9 % (40.0-76.0); PLATELET 398 x1000/uL (130-400); RED BLOOD CELL COUNT 4.07 mill/uL (4.2-5.4); RED CELL DISTRIBUTION WIDTH 17.2 % (11.6-14.6); WHITE BLOOD COUNT 9.1 x1000/uL (4.5-11.0)
[2023-07-31 11:10] LABS: CHLORIDE 113 mEq/L (98-107); INDEX HEMOLYSI 4 (1-3); INDEX ICTERIC 1 (1-4); INDEX LIPEMIC 1 (1-3); SODIUM 139 mEq/L (136-145)
[2023-07-31 11:17] LABS: POTASSIUM 4.7 mEq/L (3.5-5.1)
[2023-07-31 11:57] LABS: CARBON DIOXIDE 22 mEq/L (21-32); NT PRO B-TYPE NATRIURETIC PEP 33 pg/mL (5-125)
[2023-07-31] MEDS ORDERED: HYDROCODONE/ACETAMINOPHEN 5/325MG TABLET PO ONE (13:15)
[2023-07-31] MEDS ORDERED: TOPUD MT (13:56)
[2023-07-31 14:55] VITALS: BP 138/90; PULSE 78; RESP 17; TEMP 98.5
[2023-07-31 15:01] LABS: ALANINE AMINOTRANSFERASE 14 IU/L (13-61); ALBUMIN 3.6 g/dL (3.4-5.0); ASPARTATE AMINOTRANSFERASE 31 IU/L (15-37); BILIRUBIN TOTAL 0.6 mg/dL (0.1-1.0); CALCIUM 8.8 mg/dL (8.5-10.1); GLUCOSE 78 mg/dL (70-105); PROTEIN TOTAL 7.2 g/dL (6.0-8.3); UREA NITROGEN BLOOD 9 mg/dL (7-21)
== END 2023-07-31 15:00 | disposition home or self-care (01) ==
LOC: ER 09:44
DX: R51.9 Headache, unspecified (principal); I10 Essential (primary) hypertension; Z88.2 Allergy status to sulfonamides; Z88.6 Allergy status to analgesic agent; Z91.012 Allergy to eggs; Z91.018 Allergy to other foods; Z88.5 Allergy status to narcotic agent; Z79.82 Long term (current) use of aspirin; Z79.899 Other long term (current) drug therapy; Z98.890 Other specified postprocedural states; Z86.73 Personal history of transient ischemic attack (TIA), and cerebral infarction without residual deficits; Z86.59 Personal history of other mental and behavioral disorders; W18.30XA Fall on same level, unspecified, initial encounter; Y93.89 Activity, other specified; Y92.89 Other specified places as the place of occurrence of the external cause; Y99.8 Other external cause status
CPT/HCPCS: 36415; 71045; 80053; 83880; 85025; 93005; 99285

== ENCOUNTER → 2023-10-31 | Outpatient (CLI) | payer MEDICARE, MEDICAID ==
[~2023-10-31] MED LIST changes: +TOPUD MT
== END | disposition home or self-care (01) ==
LOC: RAD 12:18
PROVIDERS: ATTEND Podiatrist
DX: M85.871 Other specified disorders of bone density and structure, right ankle and foot (principal); M79.671 Pain in right foot; M79.672 Pain in left foot
CPT/HCPCS: 73630

== ENCOUNTER 2024-07-11 09:44 | Inpatient (IN) | payer MEDICARE, MEDICAID ==
[~2024-07-11] VITALS: Ht 167.6 cm; Wt 65.8 kg
[~2024-07-11 09:44] MED LIST changes: +DOCU250C14 MT
[2024-07-11 09:46] VITALS: O2SAT 94
[2024-07-11] MEDS: SODIUM CHLORIDE 0.9% 1,000 ML IV ONE (10:00)
[2024-07-11] MEDS: HYDROMORPHONE HCL/PF 2MG/ML INJ IV ONE (10:00)
[2024-07-11 13:06] LABS: BASOPHILS % 0.1 % (0.0-2.0); EOSINOPHILS % 0.2 % (0.0-5.0); HEMATOCRIT. 44.8 % (36.0-48.0); HEMOGLOBIN. 14.5 g/dL (12.0-16.0); LYMPHOCYTES % 15.8 % (20.0-50.0); MEAN CORPUSCULAR HEMOGLOBIN 30.2 pg (28.0-32.0); MEAN CORPUSCULAR HGB CONC 32.3 g/dL (31.0-37.0); MEAN CORPUSCULAR VOLUME 93.5 fL (81.0-99.0); MEAN PLATELET VOLUME 8.3 fl (7.4-10.4); MONOCYTES % 2.9 % (2.0-8.0); PLATELET 327 x1000/uL (130-400); RED BLOOD CELL COUNT 4.79 mill/uL (4.2-5.4); RED CELL DISTRIBUTION WIDTH 17.7 % (11.6-14.6)
[2024-07-11 13:08] LABS: CHLORIDE 114 mEq/L (98-107); POTASSIUM 3.5 mEq/L (3.5-5.1); SODIUM 143 mEq/L (136-145)
[2024-07-11 13:09] LABS: CARBON DIOXIDE 15 mEq/L (21-32)
[2024-07-11 13:10] LABS: CALCIUM 8.4 mg/dL (8.7-10.4)
[2024-07-11 13:15] LABS: CREATININE 1.4 mg/dL (0.6-1.0); GLUCOSE 90 mg/dL (70-105); UREA NITROGEN BLOOD 23 mg/dL (9-23)
[2024-07-11] MEDS ORDERED: MAGNESIUM/ALUMINUM HYDROXIDE/SIMETHICONE 30ML UDC PO PRN (13:30)
[2024-07-11] MEDS ORDERED: MIDODRINE HCL 2.5MG TABLET PO PRN (13:30)
[2024-07-11] MEDS ORDERED: GUAIFENESIN 200MG/10ML SUGAR FREE UDC PO PRN (13:30)
[2024-07-11] MEDS ORDERED: ACETAMINOPHEN 325MG TABLET PO PRN (13:30)
[2024-07-11] MEDS ORDERED: IPRATROPIUM/ALBUTEROL 0.5-3(2.5)MG/3ML NEB HHN PRN (13:30)
[2024-07-11] MEDS: DEXT 5%/0.45% NACL 1000ML 1,000 ML IV ONE (13:52)
[2024-07-11] MEDS: THIAMINE HCL 100MG TABLET PO SCH (13:53)
[2024-07-11] MEDS: ASPIRIN 81MG TABLET PO SCH (13:53)
[2024-07-11] MEDS ORDERED: HYDROMORPHONE HCL/PF 2MG/ML INJ IV PRN (14:00)
[2024-07-11 14:25] LABS: TROPONIN I HIGH SENSITIVITY 42 ng/L (3.0-34)
[2024-07-11 16:00] VITALS: BP 118/78; PULSE 95; RESP 18; TEMP 35.0028; O2SAT 95
[2024-07-11 16:15] VITALS: BP 118/78; PULSE 95; RESP 18; TEMP 35.028
[2024-07-11] MEDS ORDERED: CEFTRIAXONE 2GM/50ML 50 ML IV SCH (16:30)
[2024-07-11] MEDS: CEFTRIAXONE 2GM/50ML 50 ML IV SCH (16:46)
[2024-07-11] MEDS: MAGNESIUM 2 G PREMIX 50 ML IV NR (16:46)
[2024-07-11] MEDS: VANCOMYCIN 1.25GM/250ML IV NR (16:49)
[2024-07-11 20:00] VITALS: BP 101/50; PULSE 105; RESP 18; TEMP 36.00288; O2SAT 100
[2024-07-11] MEDS: LAMOTRIGINE 25MG TABLET PO SCH (20:02)
[2024-07-11] MEDS: FAMOTIDINE 20MG TABLET PO SCH (20:02)
[2024-07-11] MEDS: HYDROMORPHONE HCL/PF 1MG/ML INJ IV PRN (20:17)
[2024-07-11 21:15] LABS: TROPONIN I HIGH SENSITIVITY 21 ng/L (3.0-34)
[2024-07-11 21:19] LABS: LACTIC ACID 9.1 mmol/L (0.4-2.0)
[2024-07-12] VITALS: BP 99/48; PULSE 109; RESP 20; TEMP 36.72516; O2SAT 98
[2024-07-12 03:06] LABS: *AMPHETAMINES SCREEN URINE NEGATIVE (NEGATIVE); *BARBITURATES SCREEN URINE NEGATIVE (NEGATIVE); *BENZODIAZEPINES SCREEN URINE NEGATIVE (NEGATIVE); *COCAINE SCREEN URINE NEGATIVE (NEGATIVE)
[2024-07-12 03:07] LABS: CANNABINOID URINE SCREEN NEGATIVE (NEGATIVE); ECSTASY MDMA SCREEN URINE NEGATIVE (NEGATIVE); METHADONE URINE SCREEN NEGATIVE (NEGATIVE); OPIATES URINE SCREEN PRESUMPTIVE POSITIVE (NEGATIVE); PHENCYCLIDINE URINE SCREEN NEGATIVE (NEGATIVE)
[2024-07-12 03:11] LABS: CLARITY URINE TURBID (CLEAR); COLOR URINE DARK YELLOW (YELLOW); GLUCOSE URINE NEGATIVE (NEGATIVE); KETONES URINE NEGATIVE (NEGATIVE); LEUKOCYTE ESTERASE URINE NEGATIVE (NEGATIVE); NITRITE URINE NEGATIVE (NEGATIVE); OCCULT BLOOD URINE 1+ (NEGATIVE); PROTEIN URINE 1+ (NEGATIVE); SPECIFIC GRAVITY URINE 1.024 (1.005-1.030); UROBILINOGEN URINE 0.2 E.U./dL (0.2-1.0)
[2024-07-12 04:00] VITALS: BP 97/46; PULSE 112; RESP 18; TEMP 36.72516; O2SAT 96
[2024-07-12 05:10] LABS: SQUAMOUS EPITHELIAL CELL URINE FEW /lpf (RARE/1+)
[2024-07-12 05:15] LABS: WBC URINE 0-2 /hpf (0-2)
[2024-07-12 05:17] LABS: BACTERIA URINE 1+; RBC URINE 0-2 /hpf (0-2)
[2024-07-12] MEDS: FOLIC ACID 1MG TABLET PO SCH (09:49)
[2024-07-12] MEDS: MULTIVITAMINS,THER W-MINERALS TABLET PO SCH (09:49)
[2024-07-12] MEDS: ENOXAPARIN 40MG/0.4ML SYR SUBCUT SCH (09:56)
[2024-07-12 10:55] LABS: HEMATOCRIT. 37.3 % (36.0-48.0); MEAN CORPUSCULAR HEMOGLOBIN 29.1 pg (28.0-32.0); MEAN CORPUSCULAR HGB CONC 32.2 g/dL (31.0-37.0); MEAN CORPUSCULAR VOLUME 90.6 fL (81.0-99.0); MEAN PLATELET VOLUME 8.3 fl (7.4-10.4); PLATELET 271 x1000/uL (130-400); RED BLOOD CELL COUNT 4.11 mill/uL (4.2-5.4); RED CELL DISTRIBUTION WIDTH 17.2 % (11.6-14.6); WHITE BLOOD COUNT 9.8 x1000/uL (4.5-11.0)
[2024-07-12 11:00] LABS: DIFFERENTIAL COMMENT 1
[2024-07-12 11:09] LABS: CHLORIDE 111 mEq/L (98-107); POTASSIUM 3.9 mEq/L (3.5-5.1); SODIUM 137 mEq/L (136-145)
[2024-07-12 11:10] LABS: CALCIUM 7.9 mg/dL (8.7-10.4); CARBON DIOXIDE 17 mEq/L (21-32)
[2024-07-12 11:15] LABS: CREATININE 1.1 mg/dL (0.6-1.0); GLUCOSE 114 mg/dL (70-105); TRIGLYCERIDE 80 mg/dL (0-150); UREA NITROGEN BLOOD 20 mg/dL (9-23)
[2024-07-12 11:16] LABS: LDL CHOLESTEROL 25 mg/dL (5-100)
[2024-07-12 11:17] LABS: ALANINE AMINOTRANSFERASE 16 IU/L (10-49); ALBUMIN 3.4 g/dL (3.2-4.8); ASPARTATE AMINOTRANSFERASE 45 IU/L (<34); BILIRUBIN DIRECT 0.1 mg/dL (<=3.0); BILIRUBIN TOTAL 0.3 mg/dL (0.1-1.0); CHOLESTEROL 85 mg/dL (<200); HDL CHOLESTEROL 32 mg/dL (>65); PROTEIN TOTAL 5.6 g/dL (6.0-8.3)
[2024-07-12 11:19] LABS: T4 FREE 1.78 ng/dL (0.89-1.76); THYROID STIMULATING HORMONE 3.61 uIU/mL (0.55-4.78)
[2024-07-12 12:00] VITALS: BP 93/68; PULSE 106; RESP 18; TEMP 37.00296; O2SAT 98
[2024-07-12 16:00] VITALS: BP 108/68; PULSE 114; RESP 16; TEMP 36.61404; O2SAT 98
[2024-07-12 16:57] LABS: ANISOCYTOSIS 1+; PLATELET ESTIMATE NORMAL
[2024-07-12] MEDS ORDERED: VANCOMYCIN 1G PREMIX 200 ML IV SCH (17:00)
[2024-07-12 20:00] VITALS: BP 118/66; PULSE 106; RESP 20; TEMP 37.44744; O2SAT 96
[2024-07-12] MEDS ORDERED: NALOXONE HCL 0.4MG/ML VIAL IV PRN (20:15)
[2024-07-12] MEDS: METRONIDAZOLE 500MG TABLET PO SCH (21:22)
[2024-07-13] VITALS: BP 112/66; PULSE 109; RESP 18; TEMP 37.16964; O2SAT 96
[2024-07-13] MEDS: DEXT 5%/0.45% NACL 1000ML 1,000 ML IV SCH (00:33)
[2024-07-13] MEDS: ACETAMINOPHEN 325MG TABLET PO PRN (00:34)
[2024-07-13 04:00] VITALS: BP 100/57; PULSE 108; RESP 18; TEMP 37.2252; O2SAT 97
[2024-07-13] MEDS: CEFEPIME 1GM/50ML 50 ML IV SCH (05:20)
[2024-07-13 07:07] LABS: POTASSIUM 3.9 mEq/L (3.5-5.1)
[2024-07-13 07:08] LABS: CALCIUM 8.7 mg/dL (8.7-10.4)
[2024-07-13 07:11] LABS: HEMATOCRIT. 38.5 % (36.0-48.0); HEMOGLOBIN. 12.5 g/dL (12.0-16.0); MEAN CORPUSCULAR HEMOGLOBIN 29.4 pg (28.0-32.0); MEAN CORPUSCULAR HGB CONC 32.5 g/dL (31.0-37.0); MEAN CORPUSCULAR VOLUME 90.4 fL (81.0-99.0); MEAN PLATELET VOLUME 8.6 fl (7.4-10.4); PLATELET 248 x1000/uL (130-400); RED BLOOD CELL COUNT 4.26 mill/uL (4.2-5.4); RED CELL DISTRIBUTION WIDTH 17.3 % (11.6-14.6); WHITE BLOOD COUNT 7.8 x1000/uL (4.5-11.0)
[2024-07-13 07:13] LABS: CREATININE 1.2 mg/dL (0.6-1.0)
[2024-07-13 08:00] VITALS: BP 152/80; PULSE 99; RESP 18; TEMP 37.00296; O2SAT 98
[2024-07-13 08:04] LABS: DIFFERENTIAL COMMENT 1
[2024-07-13] MEDS: CEFEPIME 2GM/100ML 100 ML IV SCH (11:02)
[2024-07-13 12:00] VITALS: BP 103/71; PULSE 99; RESP 18; TEMP 36.89184; O2SAT 98
[2024-07-13 14:39] LABS: ANISOCYTOSIS 1+; PLATELET ESTIMATE NORMAL
[2024-07-13 16:00] VITALS: BP 153/99; PULSE 90; RESP 18; TEMP 36.9474; O2SAT 99
[2024-07-13] MEDS: HYDROMORPHONE HCL 2MG TABLET PO PRN (18:12)
[2024-07-13 20:00] VITALS: BP 155/77; PULSE 100; RESP 18; TEMP 37.11408; O2SAT 97
[2024-07-13] MEDS: CLONIDINE 0.1MG TABLET PO PRN (22:05)
[2024-07-14] VITALS: BP 103/73; PULSE 98; RESP 20; TEMP 37.44744; O2SAT 97
[2024-07-14 04:00] VITALS: BP 121/80; PULSE 87; RESP 20; TEMP 36.3918; O2SAT 98
[2024-07-14 06:58] LABS: CARBON DIOXIDE 21 mEq/L (21-32); CHLORIDE 110 mEq/L (98-107); SODIUM 138 mEq/L (136-145)
[2024-07-14 07:00] LABS: CALCIUM 8.5 mg/dL (8.7-10.4)
[2024-07-14 07:04] LABS: GLUCOSE 76 mg/dL (70-105)
[2024-07-14 07:05] LABS: UREA NITROGEN BLOOD 18 mg/dL (9-23)
[2024-07-14 08:00] VITALS: BP 141/87; PULSE 87; RESP 20; TEMP 36.55848; O2SAT 99
[2024-07-14 08:13] LABS: BASOPHILS % 0.2 % (0.0-2.0); EOSINOPHILS % 0.8 % (0.0-5.0); HEMATOCRIT. 32.1 % (36.0-48.0); HEMOGLOBIN. 10.7 g/dL (12.0-16.0); LYMPHOCYTES % 13.1 % (20.0-50.0); MEAN CORPUSCULAR HEMOGLOBIN 29.7 pg (28.0-32.0); MEAN CORPUSCULAR HGB CONC 33.3 g/dL (31.0-37.0); MEAN CORPUSCULAR VOLUME 89.2 fL (81.0-99.0); MEAN PLATELET VOLUME 8.5 fl (7.4-10.4); MONOCYTES % 2.8 % (2.0-8.0); NEUTROPHILS % 83.1 % (40.0-76.0); PLATELET 233 x1000/uL (130-400); WHITE BLOOD COUNT 6.3 x1000/uL (4.5-11.0)
[2024-07-14] MEDS ORDERED: LIDOCAINE HCL 1% 10 MG/ML 10ML VIAL ONE (09:01)
[2024-07-14 12:00] VITALS: BP 126/94; PULSE 92; RESP 16; TEMP 37.00296; O2SAT 100
[2024-07-14 16:00] VITALS: BP 162/96; PULSE 81; RESP 20; TEMP 36.33624; O2SAT 98
[2024-07-14] MEDS: DOCUSATE SODIUM 100MG CAPSULE PO PRN (18:40)
[2024-07-14 20:00] VITALS: BP 156/88; PULSE 82; RESP 20; TEMP 37.28076; O2SAT 97
[2024-07-15] VITALS: BP 168/93; PULSE 80; RESP 18; TEMP 37.16964; O2SAT 97
[2024-07-15 04:00] VITALS: BP 131/78; PULSE 74; RESP 18; TEMP 36.28068; O2SAT 98
[2024-07-15 08:00] VITALS: BP 133/84; PULSE 86; RESP 18; TEMP 37.16964; O2SAT 97
[2024-07-15] MEDS ORDERED: DIATR MEGLU/DIATRIZOATE SOLN 120ML ONE (10:09)
[2024-07-15 10:16] LABS: BASOPHILS % 0.4 % (0.0-2.0); CARBON DIOXIDE 19 mEq/L (21-32); CHLORIDE 111 mEq/L (98-107); DIFFERENTIAL COMMENT 0; EOSINOPHILS % 1.9 % (0.0-5.0); HEMOGLOBIN. 11.4 g/dL (12.0-16.0); LYMPHOCYTES % 21.8 % (20.0-50.0); MEAN CORPUSCULAR HEMOGLOBIN 28.5 pg (28.0-32.0); MEAN CORPUSCULAR HGB CONC 31.7 g/dL (31.0-37.0); MEAN CORPUSCULAR VOLUME 89.7 fL (81.0-99.0); MEAN PLATELET VOLUME 8.3 fl (7.4-10.4); MONOCYTES % 9.3 % (2.0-8.0); NEUTROPHILS % 66.6 % (40.0-76.0); PLATELET 254 x1000/uL (130-400); POTASSIUM 3.3 mEq/L (3.5-5.1); RED BLOOD CELL COUNT 4.01 mill/uL (4.2-5.4); RED CELL DISTRIBUTION WIDTH 16.9 % (11.6-14.6); SODIUM 139 mEq/L (136-145); WHITE BLOOD COUNT 4.6 x1000/uL (4.5-11.0)
[2024-07-15 10:17] LABS: CALCIUM 8.7 mg/dL (8.7-10.4)
[2024-07-15 10:21] LABS: IRON 36 ug/dL (50-170)
[2024-07-15 10:22] LABS: CREATININE 1.1 mg/dL (0.6-1.0); GLUCOSE 132 mg/dL (70-105); UREA NITROGEN BLOOD 14 mg/dL (9-23)
[2024-07-15 10:23] LABS: ALANINE AMINOTRANSFERASE 12 IU/L (10-49); ALBUMIN 3.6 g/dL (3.2-4.8); ASPARTATE AMINOTRANSFERASE 19 IU/L (<34)
[2024-07-15 10:24] LABS: BILIRUBIN TOTAL 0.5 mg/dL (0.1-1.0); PROTEIN TOTAL 6.2 g/dL (6.0-8.3)
[2024-07-15 10:52] LABS: TOTAL IRON BINDING CAPACITY > 670 ug/dl (250-425)
[2024-07-15 11:05] LABS: FERRITIN 91 ng/mL (10-291)
[2024-07-15 11:12] LABS: VITAMIN B12 SERUM 715 pg/mL (211-911)
[2024-07-15 11:36] LABS: FOLIC ACID (FOLATE) SERUM > 20.00 ng/mL (>5.38)
[2024-07-15 12:00] VITALS: BP 148/81; PULSE 72; RESP 18; RESP 20; TEMP 36.61404; O2SAT 98
[2024-07-15] MEDS: KCL 20MEQ/100ML PREMIX 100 ML IV SCH (15:34)
[2024-07-15 16:00] VITALS: BP 121/70; PULSE 80; RESP 18; RESP 20; TEMP 36.00288; TEMP 36.114; O2SAT 100
[2024-07-15 20:00] VITALS: BP 126/80; PULSE 86; RESP 20; TEMP 36.3918; O2SAT 100
[2024-07-16] VITALS (7 sets, daily range): BP systolic 120–157; BP diastolic 70–96; PULSE 78–91; RESP 18–20; TEMP 36.44736–37.16964; O2SAT 98–100
[2024-07-16] MEDS: FERROUS SULFATE 325MG TABLET PO SCH (09:07)
[2024-07-16] MEDS: ASCORBIC ACID 500 MG TABLET PO SCH (09:08)
[2024-07-16] MEDS: ONDANSETRON HCL 4MG/2ML INJ IV PRN (11:25)
[2024-07-16] MEDS: METOCLOPRAMIDE HCL 10MG/2ML VIAL IV PRN (16:18)
[2024-07-16] MEDS ORDERED: METOCLOPRAMIDE HCL 10MG/2ML VIAL IV SCH (18:00)
[2024-07-16] MEDS: PANTOPRAZOLE SODIUM 40 MG/VIAL IV SCH (18:54)
[2024-07-17] VITALS (8 sets, daily range): BP systolic 112–154; BP diastolic 65–94; PULSE 71–100; RESP 20; TEMP 36.114–37.39188; O2SAT 97–100
[2024-07-17 06:58] LABS: CHLORIDE 111 mEq/L (98-107); POTASSIUM 3.2 mEq/L (3.5-5.1); SODIUM 140 mEq/L (136-145)
[2024-07-17 06:59] LABS: CALCIUM 8.2 mg/dL (8.7-10.4); CARBON DIOXIDE 22 mEq/L (21-32)
[2024-07-17 07:02] LABS: UREA NITROGEN BLOOD 8 mg/dL (9-23)
[2024-07-17 07:04] LABS: GLUCOSE 111 mg/dL (70-105)
[2024-07-17 07:06] LABS: ALANINE AMINOTRANSFERASE 17 IU/L (10-49); ALBUMIN 3.5 g/dL (3.2-4.8); ASPARTATE AMINOTRANSFERASE 22 IU/L (<34); BILIRUBIN DIRECT 0.1 mg/dL (<=3.0); BILIRUBIN TOTAL 0.3 mg/dL (0.1-1.0); PHOSPHORUS 2.3 mg/dL (2.5-4.9)
[2024-07-17 07:07] LABS: PROTEIN TOTAL 5.9 g/dL (6.0-8.3)
[2024-07-17 07:14] LABS: BASOPHILS % 0.3 % (0.0-2.0); EOSINOPHILS % 1.1 % (0.0-5.0); HEMATOCRIT. 33.4 % (36.0-48.0); HEMOGLOBIN. 11.1 g/dL (12.0-16.0); LYMPHOCYTES % 24.8 % (20.0-50.0); MEAN CORPUSCULAR HEMOGLOBIN 29.8 pg (28.0-32.0); MEAN CORPUSCULAR HGB CONC 33.3 g/dL (31.0-37.0); MEAN CORPUSCULAR VOLUME 89.6 fL (81.0-99.0); MEAN PLATELET VOLUME 8.6 fl (7.4-10.4); MONOCYTES % 10.7 % (2.0-8.0); NEUTROPHILS % 63.1 % (40.0-76.0); PLATELET 309 x1000/uL (130-400); RED BLOOD CELL COUNT 3.73 mill/uL (4.2-5.4); RED CELL DISTRIBUTION WIDTH 16.9 % (11.6-14.6); WHITE BLOOD COUNT 6.6 x1000/uL (4.5-11.0)
[2024-07-17] MEDS: KCL 20MEQ/100ML PREMIX 100 ML IV SCH (11:09)
[2024-07-18] VITALS: BP 149/85; PULSE 69; RESP 18; TEMP 36.16956; O2SAT 98
[2024-07-18 08:00] VITALS: BP 129/86; PULSE 86; RESP 20; TEMP 37.05852; O2SAT 100
[2024-07-18] MEDS ORDERED: CEFEPIME 2GM/100ML 100 ML IV SCH (13:00)
[2024-07-18 16:00] VITALS: BP 130/79; PULSE 80; RESP 18; TEMP 36.72516; O2SAT 100
== END 2024-07-18 17:57 | disposition home health service (06) | DRG 871 ==
LOC: ER 10:13 → 7WST 13:12
PROVIDERS: ADMIT Internal Medicine; ATTEND Internal Medicine
PROC: 02HV33Z Insertion of Infusion Device into Superior Vena Cava, Percutaneous Approach (ICD-10-PCS; principal; 2024-07-14)
PROC: B548ZZA Ultrasonography of Superior Vena Cava, Guidance (ICD-10-PCS; 2024-07-14)
PROC: B5181ZA Fluoroscopy of Superior Vena Cava using Low Osmolar Contrast, Guidance (ICD-10-PCS; 2024-07-14)
DX: A41.9 Sepsis, unspecified organism (principal); J96.00 Acute respiratory failure, unspecified whether with hypoxia or hypercapnia; N17.9 Acute kidney failure, unspecified; M48.56XA Collapsed vertebra, not elsewhere classified, lumbar region, initial encounter for fracture; K51.90 Ulcerative colitis, unspecified, without complications; K86.1 Other chronic pancreatitis; E87.20 Acidosis, unspecified; R18.8 Other ascites; G40.909 Epilepsy, unspecified, not intractable, without status epilepticus; D64.9 Anemia, unspecified; E61.1 Iron deficiency; G89.4 Chronic pain syndrome; I10 Essential (primary) hypertension; K21.9 Gastro-esophageal reflux disease without esophagitis; K76.89 Other specified diseases of liver; Z96.643 Presence of artificial hip joint, bilateral; Z96.659 Presence of unspecified artificial knee joint; Z72.0 Tobacco use; Z85.3 Personal history of malignant neoplasm of breast; Z86.73 Personal history of transient ischemic attack (TIA), and cerebral infarction without residual deficits; Z87.19 Personal history of other diseases of the digestive system; Z88.0 Allergy status to penicillin; Z88.2 Allergy status to sulfonamides; Z88.6 Allergy status to analgesic agent; Z98.82 Breast implant status
CPT/HCPCS: 36415; 36573; 71045; 74018; 74176; 76700; 80048; 80053; 80061; 80076; 80202; 80305; 81003; 82270; 82607; 82728; 82746; 83540; 83550; 83605; 83735; 83880; 84100; 84145; 84439; 84443; 84484; 85025; 85044; 85379; 93005; 93970; 97162; 97166; 97530; 97535; 99285; C1725; C1893; J0692; J0696; J1171; J1650; J2405; J2470; J2765; J3370; J3475; J3480; J3490; J7030; Q9963

== ENCOUNTER 2024-09-08 12:47 | Emergency (ER) | payer MEDICARE, MEDICAID ==
[~2024-09-08] VITALS: Ht 162.6 cm; Wt 52.0 kg
[2024-09-08 12:53] VITALS: BP 102/73; TEMP 98.4; O2SAT 98
[2024-09-08 12:54] VITALS: PULSE 108; O2SAT 98
[2024-09-08 18:53] LABS: BASOPHILS % 0.7 % (0.0-2.0); EOSINOPHILS % 5.1 % (0.0-5.0); HEMATOCRIT. 35.9 % (36.0-48.0); HEMOGLOBIN. 11.6 g/dL (12.0-16.0); LYMPHOCYTES % 50.6 % (20.0-50.0); MEAN CORPUSCULAR HEMOGLOBIN 28.2 pg (28.0-32.0); MEAN CORPUSCULAR HGB CONC 32.3 g/dL (31.0-37.0); MEAN CORPUSCULAR VOLUME 87.6 fL (81.0-99.0); MEAN PLATELET VOLUME 7.5 fl (7.4-10.4); MONOCYTES % 12.6 % (2.0-8.0); PLATELET 636 x1000/uL (130-400); RED CELL DISTRIBUTION WIDTH 18.3 % (11.6-14.6); WHITE BLOOD COUNT 3.6 x1000/uL (4.5-11.0)
[2024-09-08 19:08] LABS: CHLORIDE 109 mEq/L (98-107); POTASSIUM 3.5 mEq/L (3.5-5.1); SODIUM 140 mEq/L (136-145)
[2024-09-08 19:09] LABS: CARBON DIOXIDE 22 mEq/L (21-32)
[2024-09-08 19:10] LABS: CALCIUM 9.6 mg/dL (8.7-10.4)
[2024-09-08 19:14] LABS: CREATININE 0.9 mg/dL (0.6-1.0); GLUCOSE 86 mg/dL (70-105); UREA NITROGEN BLOOD 7 mg/dL (9-23)
[2024-09-08 19:16] LABS: ALANINE AMINOTRANSFERASE < 7 IU/L (10-49); ALBUMIN 3.6 g/dL (3.2-4.8); ASPARTATE AMINOTRANSFERASE 13 IU/L (<34)
[2024-09-08 19:17] LABS: BILIRUBIN TOTAL 0.4 mg/dL (0.1-1.0); PROTEIN TOTAL 6.4 g/dL (6.0-8.3)
== END 2024-09-08 22:19 | disposition left against medical advice (07) ==
LOC: ER 12:47
DX: S20.219A Contusion of unspecified front wall of thorax, initial encounter (principal); S09.90XA Unspecified injury of head, initial encounter; M54.2 Cervicalgia; I10 Essential (primary) hypertension; Z86.73 Personal history of transient ischemic attack (TIA), and cerebral infarction without residual deficits; Z96.649 Presence of unspecified artificial hip joint; Z96.659 Presence of unspecified artificial knee joint; Z98.82 Breast implant status; Z88.0 Allergy status to penicillin; Z88.1 Allergy status to other antibiotic agents; Z88.2 Allergy status to sulfonamides; Z88.5 Allergy status to narcotic agent; Z88.6 Allergy status to analgesic agent; Z79.899 Other long term (current) drug therapy; W01.0XXA Fall on same level from slipping, tripping and stumbling without subsequent striking against object, initial encounter; Y93.01 Activity, walking, marching and hiking; Y92.89 Other specified places as the place of occurrence of the external cause; Y99.8 Other external cause status
CPT/HCPCS: 36415; 71101; 80053; 85025; 99284